=== PATIENT | female | born 1980 | race Caucasian/White ===

== ENCOUNTER 2025-06-04 22:35 | Emergency (ER) | payer BC, SELFPAY ==
--- NOTE | ~2025-06-04 | CT_ITS ---
CLINICAL HISTORY: L flank pain CT abdomen and pelvis without contrast Comparison: None provided Findings: CT abdomen: No infiltrates within the lung bases. Minor areas of dependent atelectasis. No acute bony abnormality. No focal lesions within the unenhanced liver, spleen, pancreas, gallbladder, or adrenal glands. Small splenules evident. 1 mm calculus is seen within the interpolar region of the left kidney. No stones are seen within the right kidney. No ureteral calculi are evident. No hydronephrosis or perinephric stranding. Small bowel loops are of normal caliber. Nonspecific mild edema within the celiac axis and superior mesenteric artery axis. Tiny lymph nodes within these areas all measure less than 5 mm in short axis. These are increased in number but not size. Fat containing umbilical hernia. CT pelvis: IUD is seen within the mid uterus. 1 cm cyst within the left ovary. Scattered diverticuli throughout the colon, primarily within the sigmoid colon. No findings of diverticulitis. No findings of appendicitis. No free fluid or free air. IMPRESSION: 1. Tiny nonobstructing left renal calculus. 2. No findings of appendicitis. 3. Nonspecific edema surrounding the celiac artery and superior mesenteric artery with tiny adjacent lymph nodes. This is nonspecific but suggests an infectious or inflammatory process such as mesenteric adenitis, arteritis, or potentially duodenitis. This document has been electronically signed by: Miguel Seaman MD on 06/05/2025 02:04:12
[2025-06-04 22:47] VITALS: BP 141/77; PULSE 72; O2SAT 98
[2025-06-04 22:49] VITALS: BP 133/5; PULSE 70; RESP 18; TEMP 36.7; O2SAT 95; BMI 34.2
[2025-06-04 23:21] LABS: MANUAL DIFF FLAG NO
[2025-06-04 23:22] LABS: Hematocrit 39.9 % (37.0-47.0); Hemoglobin 13.3 g/dl (12.0-16.0); Imm Gran Abs Auto 0.03 X10*3/uL (0.00-0.03); Imm Gran Pct Auto 0.3 % (0.0-0.4); Lymphocytes Absolute Auto 2.1 X10*3/uL (1.2-4.9); Mean Corpuscular HGB Conc 33.3 g/dl (31.0-35.0); Mean Corpuscular Hemoglobin 30.4 pg (27.0-33.0); Mean Corpuscular Volume 91.1 fL (80.0-98.0); NRBC Abs Auto 0.000 X10*3/uL (0.0-0.012); NRBC Pct Auto 0.0 /100WBC (0.0-0.2); Platelet Count 212 X10*3/uL (160-400); Red Blood Count 4.38 X10*6/uL (4.20-5.50); White Blood Count 10.6 X10*3/uL (4.8-10.8)
[2025-06-04 23:42] LABS: Anion Gap 13 (12-20); Blood Urea Nitrogen 12 mg/dL (9-16); Calcium 8.8 mg/dL (8.4-10.2); Carbon Dioxide 23 mmol/L (22-29); Chloride 106 mmol/L (96-108); Creatinine Clr Calc Pharmacy 108.9; Estimated Glomerular Filt Rate > 60; Potassium 3.5 mmol/L (3.3-5.1); Sodium 138 mmol/L (135-145)
--- NOTE | 2025-06-05 00:24 | PC.NURSE ---
Report received and care assumed around 0000. RN called to bedside by registration as patient and bedside visitor were questioning whether or not the IV line was working. Pt found to be awake and alert, skin warm and dry and without obvious distress noted. She reports continued flank pain although she reports its No where near where it was . The pt's Liter bag is noted to still be full at first glance and not infusing. RN attempted to flugh the #20G Right AC line from EMS without success. New IV line initiated and IVF now infusing with ease. Pt has not yet gone to the restroom and does not currently feel as though she can. Pt encouraged to attempt, knows to use call panchal if/when she does not to void to provide sample for testing.
[2025-06-05 00:55] LABS: Appearance Urine Clear; Glucose Urine UA Negative (Negative); PH 6.5 (5.0-9.0); Specific Gravity - Urine <= 1.005 (1.005-1.025); UMIC TRIGGER UACC YES
--- NOTE | 2025-06-05 00:59 | ED.FEMALEGU ---
HPI - Female Genitourinary General Chief complaint: Urogenital-Female Stated complaint: L flank pain rad to back diff urinatiion hx stones Time Seen by Provider: 06/05/25 00:20 Source: patient and EMS Mode of arrival: EMS Limitations: no limitations History of Present Illness ED Provider: Dr. Meenakshi Gomes HPI Narrative: 44-year-old female with history of kidney stones presenting with sudden onset left flank pain radiating into her mid back ongoing for about an hour prior to arrival. Describes some dysuria, history of kidney stones. Feels similar to previous kidney stone pain. Denies associated fever. Describes nausea but no vomiting. No bowel changes, vaginal bleeding or discharge. No known sick contacts or recent travel. Has been feeling well prior to tonight. Related Data Previous Rx's ?Medication ?Instructions ?Recorded dicyclomine 20 mg tablet 20 mg PO TID #10 tabs 06/05/25 ketorolac 10 mg tablet 10 mg PO Q8H 4 days #12 tabs 06/05/25 ondansetron 4 mg disintegrating 4 mg PO Q8H PRN nausea and 06/05/25 tablet vomiting #10 tabs Allergies Allergy/AdvReac Type Severity Reaction Status Date / Time No Known Allergies Allergy Verified 06/04/25 22:53 Review of Systems Review of Systems: As per HPI, full review of systems performed and negative but for the above mentioned pertinent positives and negatives. [facility] Social History Social History Smoked in Last 30 Days: No Use of substances other than those prescribed or required for medical reasons: No Advance Directives: No Advance Directives Information Provided: Yes Patient : No Physical Exam Exam: Exam: GENERAL: Ill-Appearing, appears uncomfortable. SKIN: Normal skin color for ethnicity, warm, dry, no rashes noted. HEENT: Normocephalic, atraumatic, no stridor, dry mucous membranes, dentition intact, EOMI, PERRLA. NECK: Soft, supple, full ROM, midline structures nontender, no step-offs, no deformities, no lymphadenopathy. CHEST: Heart regular tachycardia, no murmurs, symmetric chest rise and fall. PULMONARY: Clear to auscultation bilaterally, diminished at the bases, no labored breathing, no wheezes/rhales/rhonchi. ABDOMINAL: Soft, nondistended, left flank tenderness to percussion with voluntary guarding, positive bowel sounds in all quadrants. : Deferred. MUSCULOSKELETAL: Normal tone, full range of motion, no deformities, no peripheral edema. NEURO: Alert and oriented x3, CN II through XII intact, equal strength and sensation bilateral upper and lower extremities, no focal neurologic deficits. PSYCHIATRIC: Flat affect, fluid speech, good eye contact and appropriate demeanor. Vital Signs: Vital Signs: Last Vital Signs Temp 98.1 F 06/05/25 02:55 Pulse 70 06/05/25 02:55 Resp 18 06/05/25 02:55 BP 133/5 L 06/05/25 02:55 Pulse Ox 95 06/05/25 02:55 O2 Del Method Room Air 06/05/25 02:55 BMI result Body Mass Index 34.2 Medications Administered Discontinued Medications Generic Name Dose Route Start Last Admin Trade Name Freq PRN Reason Stop Dose Admin Sodium Chloride 1,000 mls @ 999 mls/hr 06/04/25 23:00 06/05/25 02:30 Ns IV 06/05/25 00:00 Infused .Q1H1M XU Infusion Ketorolac Tromethamine 15 mg 06/05/25 01:00 06/05/25 01:11 Ketorolac Tromethamine 15 Mg/Ml Vial IVPUSH 06/05/25 01:01 15 mg ONCE ONE Administration Medical Decision Making Medical Decision Making [facility] Narrative: Patient presented today with a chief complaint of flank pain. Differential diagnosis is certainly broad and includes but is not limited to kidney stone, infection such as pyelonephritis, vascular pathology, among many others. CT shows evidence of mesenteric adenitis. Patient is feeling improved after medications. She is not currently dehydrated, tolerating oral intake. Discuss treatment as well as strict return precautions. Using shared decision making, plan for discharge home to follow-up with primary care and/or specialist. Patient understands and agrees with plan for discharge. Discharged home in stable condition. Differential Diagnosis Differential Diagnoses: The differential diagnosis associated with the presentation includes (As above) Admission/Observation Consideration of admission/observation: Escalation of care including admission/observation considered Lab Data [facility] Lab Attestation statement: I reviewed the patient's lab results. 06/04/25 23:02 06/04/25 23:02 Labs: Lab Results 06/04/25 06/05/25 Range/Units 23:02 00:47 WBC 10.6 (4.8-10.8) X10*3/uL RBC 4.38 (4.20-5.50) X10*6/uL Hgb 13.3 (12.0-16.0) g/dl Hct 39.9 (37.0-47.0) % MCV 91.1 (80.0-98.0) fL MCH 30.4 (27.0-33.0) pg MCHC 33.3 (31.0-35.0) g/dl RDW 12.6 (11.0-16.0) % Plt Count 212 (160-400) X10*3/uL MPV 10.5 (9.4-12.3) fL Immature Gran % (Auto) 0.3 (0.0-0.4) % Neut % (Auto) 73.6 H (45-73) % Lymph % (Auto) 19.7 L (20-40) % [place] % (Auto) 4.8 (2-11) % Eos % (Auto) 0.9 (0-4) % Baso % (Auto) 0.7 (0-2) % Lymph # (Auto) 2.1 (1.2-4.9) X10*3/uL [place] # (Auto) 0.5 (0.1-1.2) X10*3/uL Eos # (Auto) 0.1 (0.0-0.4) X10*3/uL Baso # (Auto) 0.1 (0.0-0.2) X10*3/uL Abs Immat Gran (auto) 0.03 (0.00-0.03) X10*3/uL Absolute Neuts (auto) 7.8 (2.0-8.3) x10*3/uL Absolute Nucleated RBC 0.000 (0.0-0.012) X10*3/uL Nucleated RBC % (auto) 0.0 (0.0-0.2) /100WBC Sodium 138 (135-145) mmol/L Potassium 3.5 (3.3-5.1) mmol/L Chloride 106 (96-108) mmol/L Carbon Dioxide 23 (22-29) mmol/L Anion Gap 13 (12-20) BUN 12 (9-16) mg/dL Creatinine 0.85 (0.5-1.4) mg/dL Estim Creat Clear Calc 108.9 Estimated GFR > 60 Random Glucose 111 (60-115) mg/dL Calcium 8.8 (8.4-10.2) mg/dL Beta HCG, Quant < 2 mIU/mL Urine Color Yellow Urine Appearance Clear Urine pH 6.5 (5.0-9.0) Ur Specific [place] <= 1.005 (1.005-1.025) Urine Protein Negative (Neg-Trace) mg/dL Urine Glucose (UA) Negative (Negative) mg/dL Urine Ketones Negative (Negative) mg/dL Urine Blood Large (3+) H (Negative) Urine Nitrite Negative (Negative) Ur Leukocyte Esterase Negative (Negative) Urine RBC 6-10 H (0-2) /HPF Urine WBC 0-5 (0-5) /HPF Ur Squamous Epith Cells 0-2 (0-2) /HPF Urine Bacteria None Seen (None Seen) Hyaline Casts 0-2 (0-2) /LPF Radiology Impression Discussion of test interpretation with radiology: I have reviewed the radiologist's reading. Independent Historian Clinical information obtained from an independent historian. History obtained from or confirmed by: Spouse and EMS Prescription Management I considered prescription management with: Pain Medication and Other (Antiemetics) Chronic Conditions Patient?s care impacted by: Other (Kidney stones) Discharge Plan Discharge Clinical Impression: Acute mesenteric adenitis Patient Disposition: Home, Self-Care Instructions: Mesenteric Adenitis (ED) Additional Instructions: DIAGNOSIS & TREATMENT: You were seen in the Emergency Department for your abdominal pain. We performed laboratory work and a CT scan of your abdomen and pelvis which did not reveal any acute abnormalities that would explain your symptoms aside from mild mesenteric adenitis, which is a nonspecific finding likely caused by a virus. Rarely it can be caused by a bacteria that would require antibiotics, but it does not appear that you need this today with your normal bloodwork and without bloody stools in the last 24 hours. FURTHER CARE: We have not found any emergent physical exam or lab abnormalities that would require admission to the hospital today. Many people who come to the ER with abdominal pain do not leave with a specific diagnosis at the end of their visit. In the Emergency Department we try to make sure that there is no emergent problem that needs surgery or antibiotics right now. This does not mean that your evaluation is complete--please be sure to follow up with your regular doctor as additional testing as an outpatient may be indicated Please be certain to drink plenty of fluids over the next several. You should advance your diet as tolerated. You may wish to start with the BRAT diet (bananas, rice, applesauce, toast). WHEN YOU SHOULD BE SEEN NEXT: Please follow-up with your primary care provider within the next 2-3 days for reevaluation of your symptoms. WHEN TO RETURN TO THE ED: Monitor your symptoms closely and return to the emergency department immediately for any new/worsening symptoms, worsening abdominal pain, pain which changes location (particularly if it moved to the right lower quadrant), nausea, vomiting, blood in your stool, black/tarry stools, chest pain, shortness of breath, fevers, chills, night sweats, you are unable to arrange follow-up care, or any other concerning symptoms. Prescriptions: New ketorolac 10 mg tablet 10 mg PO Q8H 4 Days Qty: 12 0RF dicyclomine 20 mg tablet 20 mg PO TID Qty: 10 0RF ondansetron 4 mg tablet,disintegrating 4 mg PO Q8H PRN (Reason: nausea and vomiting) Qty: 10 0RF Interventions: ED Discharge Assessment Last Done: 06/05/25 02:55 Discharge Date/Time: 06/05/25 02:56 Print Language: Q[place]
[2025-06-05 02:55] VITALS: BP 133/5; PULSE 70; RESP 18; TEMP 36.7; O2SAT 95
== END 2025-06-05 02:56 | disposition home or self-care (01) ==
PROVIDERS: Emergency Provider Emergency Medicine; PCP Internal Medicine
DX: I88.0 Nonspecific mesenteric lymphadenitis (principal); Z87.442 Personal history of urinary calculi
CPT/HCPCS: 36415; 74176; 80048; 81001; 84702; 85025; 96361; 96374; 99284; 99285; J1885

== ENCOUNTER → 2025-06-05 01:10 | Outpatient (BNV) | payer BC, SELFPAY | PROVIDERS: Emergency Provider Emergency Medicine; PCP Internal Medicine; Visit Provider Radiology Diagnostic Radiology | DX: R10.A2 Flank pain, left side (principal) | CPT/HCPCS: 74176 ==